=== PATIENT | female | born 1990 | race Caucasian/White ===

== ENCOUNTER → 2017-05-05 | Outpatient (CLI) | payer OTHER | END | disposition home or self-care (01) | LOC: C.PAPS 08:34 | PROVIDERS: ATTEND Physician Assistant | DX: Z01.419 Encounter for gynecological examination (general) (routine) without abnormal findings (principal) ==

== ENCOUNTER → 2017-09-29 | Outpatient (CLI) | payer OTHER ==
--- NOTE | 2017-09-29 09:35 | DIAGNOSTIC IMAGING REPORT ---
LEFT THUMB 3 VIEWS CLINICAL HISTORY: Left thumb injury. FINDINGS: 3 views of the left thumb are obtained. No prior studies are available for comparison at the time of dictation. The skeletal structures are well mineralized. There is a healing nondistracted fracture through the proximal shaft of the first distal phalanx. Overlying soft tissue edema is noted. Fracture does not extend to the articular surface. No additional fracture is seen. The first metacarpophalangeal and interphalangeal joints are well-maintained. IMPRESSION: There is a healing nondistracted fracture through the proximal shaft of the first distal phalanx as above. Electronically signed by: Gamaliel Rodríguez M.D. 09/29/2017 9:33 AM Dictated Date/Time: 09/29/2017 9:32 AM
== END | disposition home or self-care (01) ==
LOC: C.RADBC 09:08
PROVIDERS: ATTEND Family Medicine
DX: S62.525D Nondisplaced fracture of distal phalanx of left thumb, subsequent encounter for fracture with routine healing (principal); X58.XXXD Exposure to other specified factors, subsequent encounter

== ENCOUNTER → 2017-11-29 | Outpatient (CLI) | payer OTHER | END | disposition home or self-care (01) | LOC: C.CPL 09:55 | PROVIDERS: ATTEND Family Medicine | DX: R00.2 Palpitations (principal) ==

== ENCOUNTER 2020-01-19 17:54 | Inpatient (IN) ==
[2020-01-19] MEDS ORDERED: LACTATED RINGER'S 1,000 ML IV SCH ×3 (18:45→22:29)
--- NOTE | 2020-01-19 18:50 | History & Physical Report ---
Date of Service January 19, 2020 Assessment & Plan (1) Breech presentation of fetus: Ruptured, so will move to primary LTCS tonight. Given minimal cervical dilation and no contractions, with very full stomach from recent meal, will defer timing to anesthesia's recommendations unless labor ensues. History of Present Illness Primary Care Provider: Joy Cueva, DO 29yo at 39wk with known breech presentation of fetus, and now SROM occurring at home this evening. She had just eaten a large meal. No contractions. No VB, good FM. Fluid was clear. Allergies Allergy/AdvReac Type Severity Reaction Status Date / Time No Known Allergies Allergy Verified 01/16/20 14:57 Home Medications Home Medications Medication Instructions Recorded Confirmed Type prenat.vits,keeley,zhd-utth-luqtx 1 tab PO QPM 06/10/19 01/19/20 History levothyroxine 88 mcg PO QAM 01/15/20 01/19/20 History Patient History Medical History Acid reflux R/T Anxiety Fluttering sensation of heart workup ordered by PCP negative (EKG, ECHO, Holter monitor study all WNL per pt - [facility]) Hypothyroidism Migraine Seasonal allergies Surgical History History of removal of skin mole S/P wisdom tooth extraction Family History Father Kidney stone Pulmonary embolism Hypertension Sister Thyroid disease Other No family history of adverse response to anesthesia Social History Preferred Language: Icelandic Communication Ability: Effective Carcass Washer Required: No Beliefs That Will Affect Care: None marital status: marital status details: Tru Duong (31) [phone] Current Living Situation: Spouse Current Living Situation Comment: lives with spouse, cats-spouse changing litter current occupational status: employed current occupation: [employer] Other Information That Helps Us Care for You: No Feels Safe at Home: Yes Safety Concerns: Feels Safe At This Time Smoking Status: Never smoker Second Hand Exposure: No ; Tobacco Cessation Education Requested by Patient: No Hx Alcohol Use: No Hx Substance Use: No Physical Exam Constitutional: WD/WN, vitals as above Eyes: PERRL, conjunctivae normal, anicteric sclerae ENMT: external ear and nose normal, oropharynx normal Neck: supple Respiratory: normal respiratory effort and able to speak in complete sentences; no respiratory distress Cardiovascular: Rate/Rhythm: regular rate and regular rhythm Gastrointestinal (Abdomen): Gravid / AGA, nontender Musculoskeletal: no cyanosis or clubbing, extremities motor strength 5/5 Skin: no rashes, warm and dry Neurologic: patellar DTR's 2+ bilat, sensation intact Psychiatric: A+Ox3, euthymic affect Genitourinary: Speculum/Bimanual Exam: no vaginal lesions, no vaginal bleeding and uterus nontender OB Exam Abdomen: + breech (rita breech - anus just above cervix) Manual OB Exam: + cervical dilation 2 cm, + cervical effacement 90%, + station -2 and + amniotic fluid clear OB Exam Monitor Tracing: + external FHT monitor used, + external uterine monitor used and + category I Lymphatic: no cervical or axillary lymphadenopathy Results & Data Vital Signs (Past 12 Hours) Vital Signs Pulse BP 01/19/20 18:05 77 124/66 Code Status & VTE Plan VTE Prophylaxis Plan VTE Prophylaxis will be ordered: Yes Coding Level of Care Code None Diagnoses Breech presentation of fetus O32.1XX0
[2020-01-19 18:58] LABS: Basophils # (auto) 0.01 K/uL (0-0.2); Basophils % (auto) 0.1 %; Eosinophils # (auto) 0.16 K/uL (0-0.5); Eosinophils % (auto) 1.6 %; Hemoglobin 11.9 g/dL (12.0-16.0); Immature Granulocytes # (auto) 0.02 K/uL (0.00-0.02); Immature Granulocytes % (auto) 0.2 %; Lymphocytes # (auto) 1.49 K/uL (1.2-3.4); Mean Corpuscular Hemoglobin 29.9 pg (25-34); Mean Corpuscular Volume 87.9 fL (80-100); Monocytes # (auto) 0.97 K/uL (0.11-0.59); Monocytes % (auto) 9.7 %; Neutrophils # (auto) 7.31 K/uL (1.4-6.5); Neutrophils % (auto) 73.4 %; Platelet Count 183 K/uL (130-400); RDW Coefficient of Variation 12.7 % (11.5-14.5); RDW Standard Deviation 40.9 fL (36.4-46.3); Red Blood Count 3.98 M/uL (4.2-5.4); White Blood Count 9.96 K/uL (4.8-10.8)
--- NOTE | 2020-01-19 19:01 | Anesthesiology Consultation ---
Date of Service January 19, 2020 Assessment & Plan (1) Encounter for pre-operative examination: Chart Review Chart Review: Acceptable Risk for Surgery and Patient NOT seen in Pre Admission Testing Consults Requested none History Surgery Operation Date: 01/19/20 19:20 Proposed Procedures p Section in LD - Jo-Ann Brooks MD Height/Weight Height: 5 ft 8 in Weight: 74.389 kg Allergies Allergy/AdvReac Type Severity Reaction Status Date / Time No Known Allergies Allergy Verified 01/16/20 14:57 Medications Home Medications Medication Instructions Recorded Confirmed Last Taken prenat.vits,keeley,gov-hjjg-bjihb 1 tab PO QPM 06/10/19 01/19/20 01/18/20 21:00 levothyroxine 88 mcg PO QAM 01/15/20 01/19/20 01/19/20 06:00 Past Medical History Medical History Acid reflux R/T Anxiety Fluttering sensation of heart workup ordered by PCP negative (EKG, ECHO, Holter monitor study all WNL per pt - [facility]) Hypothyroidism Migraine Seasonal allergies Exercise / Class Metabolic Activity II 4-5 Yardwork/Stairs/Walk up hill Past Family History Family History Father Kidney stone Pulmonary embolism Hypertension Sister Thyroid disease Other No family history of adverse response to anesthesia Past Surgical History Surgical History History of removal of skin mole S/P wisdom tooth extraction Past Anesthesia History No Hx of Anesthesia Complications and No Family Hx of Anesthesia Complications History of PONV No Hx of PONV and No Hx of Motion Sickness Social History Smoking Status: Never smoker Do You Dip or Chew Tobacco: No Hx Alcohol Use: No Hx Substance Use: No substance use type: does not use Physical Exam Vital Signs Last Vital Signs Temp 36.7 C 01/19/20 18:15 Pulse 77 01/19/20 18:15 Resp 18 01/19/20 18:15 BP 124/66 01/19/20 18:15 Testing Laboratory Results 01/19/20 18:50
[2020-01-19] MEDS ORDERED: PHENYLEPHRINE 100MCG/ML 5ML SYR ONE (19:17)
[2020-01-19] MEDS ORDERED: OXYTOCIN 10 UNITS/ML VIAL ONE (19:17)
[2020-01-19] MEDS ORDERED: ONDANSETRON INJ 2 MG/ML 2 ML VIAL ONE (19:17)
[2020-01-19] MEDS ORDERED: fentaNYL citrate 100 MCG/2 ML VIAL ONE (19:18)
[2020-01-19] MEDS ORDERED: MoRPHine SULFATE PF 1 MG/ML 10 ML AMP/VIAL ONE (19:18)
[2020-01-19] MEDS ORDERED: CEFAZOLIN 2000MG 2,000 MG/15 ML SYR IV STA (19:29)
[2020-01-19] MEDS ORDERED: CITRIC ACID/SODIUM CITRATE 15 ML UDC ONE (19:40)
[2020-01-19] MEDS ORDERED: METOCLOPRAMIDE HCL INJ 5 MG/ML 2 ML VIAL ONE (20:19)
[2020-01-19] MEDS ORDERED: NALOXONE HCL 1 MG in SODIUM CHLORIDE 0.9% 1000ML 1,000 ML IV PRN (20:21)
[2020-01-19] MEDS ORDERED: MoRPHine SULFATE 2 MG/ML CARP IV PRN (20:21)
[2020-01-19] MEDS ORDERED: MoRPHine SULFATE PF 1 MG/ML 10 ML AMP/VIAL INT SPINAL ONE (20:21)
[2020-01-19] MEDS ORDERED: NALOXONE HCL 0.08 MG in SYRINGE 1.8 ML IV PRN (20:21)
[2020-01-19] MEDS ORDERED: PROMETHAZINE HCL 12.5 MG in SODIUM CHLORIDE 0.9% 50 ML IV PRN (20:21)
[2020-01-19] MEDS ORDERED: KETOROLAC 30 MG/ML VIAL IV PRN (20:21)
[2020-01-19] MEDS ORDERED: ONDANSETRON INJ 2 MG/ML 2 ML VIAL IV PRN (20:21)
[2020-01-19] MEDS ORDERED: NALOXONE HCL 0.4 MG/1 ML VIAL/CARP IV PRN (20:21)
[2020-01-19] MEDS ORDERED: ePHEDrine sulfate 50 MG/ML AMP IV PRN (20:21)
[2020-01-19] MEDS ORDERED: LACTATED RINGER'S 500 ML IV PRN (20:21)
[2020-01-19] MEDS ORDERED: MEPERIDINE HCL 25 MG/ML CARP/VIAL IV PRN (20:21)
[2020-01-19] MEDS ORDERED: DiphenhydrAMINE HCL 50 MG/ML VIAL IV PRN (20:21)
[2020-01-19] MEDS ORDERED: DC INTRASPINAL MORPHINE SCH (20:30)
[2020-01-19] MEDS ORDERED: NO NARCOTICS OR SEDATIVES SCH (20:30)
--- NOTE | 2020-01-19 20:48 | Operative Report ---
PG Post Operative Report Pre & Post Diagnosis Operation Date: 01/19/20 19:20 Pre-Op Diagnosis: 1. Breech Presentation 2. Premature Rupture of membranes Post-Op Diagnosis: 1. Breech Presentation 2. Premature Rupture of membranes 3. Bicornuate uterus I identified the patient and participated in the time-out.: Yes Procedure Operation Date: 01/19/20 19:20 Actual Procedures p Primary Low transverse section - Jo-Ann Brooks MD Surgeon Jo-Ann Brooks MD Dispensing And Measuring Optician Helen Montez RN Estimated Blood Loss 500 Findings Consistent with Post-Op Diagnosis (Bicornuate uterus with in RIGHT horn) Specimens cord blood, placenta Anesthesia Type Spinal Complications none Disposition Accompanied Patient To Recovery: Yes Disposition: L&D Description of Procedure The patient was brought to the operating room and placed on the table in the supine position with a leftward tilt, then prepped and draped in standard sterile fashion. A hard time out was taken prior to proceeding. A pfannensteil incision was created sharply and carried down to the fascia using bovie electrocautery. The fascia was nicked and then extended using silva scissors. The edges of the fascia were grasped with Irasema clamps and elevated, then sharply and bluntly dissected off the underlying rectus. The midline of the rectus was identified and bluntly . The peritoneum was bluntly entered, and this entry was extended using pressure from the surgeon's hands. The bladder retractor was placed and the lower uterine segment was examined and found to be well developed. A bladder flap was created and the retractor was replaced behind this flap to protect the bladder. A transverse lower uterine incision was then created, with final entry to the uterine cavity made in a blunt manner with the surgeon's finger. Clear amniotic fluid was encountered. The sacrum was elevated to the incision and delivered using mild fundal pressure. The legs were delivered in physiologic fashion, then the torso was wrapped in a damp towel and elevated to allow sweeping of the arms, then delivery of the head maintaining flexion at all times. The cord was doubly clamped and cut, then the vigorous was taken to the warmer for siene maker care. The placenta was manually extracted, then the uterus was gently exteriorized from the maternal abdomen. It was noted to be distinctly bicornuate with an enlarged R horn where the had grown, and a smaller L horn, with bilateral tubes and ovaries appearing normal. The cavity was cleared of clot and debris using a dry lap sponge. The angles of the incision were identified with allis clamps, and the hysterotomy was then repaired in running locked fashion using 0-vicryl suture, followed by a second imbricating layer. The tubes and ovaries were examined and found to be normal bilaterally. The posterior gutter was irrigated and cleared of clot and debris. The uterus was then gently re-internalized to the abdomen. Lateral gutters were cleared of clot and debris using a damp lap sponge, and a final exam of the hysterotomy revealed good hemostasis. The rectus muscles were allowed to reapproximate naturally. The angle of the fascia was grasped with a Irasema clamp and the fascia was then repaired in running non-locked fashion with 1-vicryl suture. At the completion of repair, the fascia was examined and found to be free of any defect. The subcutaneous tissue was copiously irrigated and then reapproximated using 3-0 chromic. The skin was then closed using 4-0 monocryl in a running subcuticular fashion and a dermabond dressing was applied. The tate was noted to be draining clear yellow urine as the patient was transferred back to her recovery room. I attest to the content of the Intraoperative Record and any orders documented therein. Any exceptions are noted below.
--- NOTE | 2020-01-19 20:52 | Anesthesiology Progress Note ---
Date of Service January 19, 2020 Anesthesia Post Procedure Vital Signs Vital Signs: Temp Pulse Resp BP Pulse Ox 01/19/20 20:50 69 112/55 L 01/19/20 20:48 68 105/55 L 01/19/20 20:46 69 100 01/19/20 19:35 36.7 C 74 18 123/79 01/19/20 18:15 36.7 C 77 18 124/66 01/19/20 18:05 77 124/66 Transfer of Care Handoff Completed per policy Notes Mental Status: alert / awake / arousable and participated in evaluation Patient Amnestic to Procedure: No Nausea / Vomiting: adequately controlled Pain: adequately controlled Airway Patency, RR, SpO2: stable & adequate BP & HR: stable & adequate Hydration State: stable & adequate Neuraxial Anesthesia: was administered and sensory block is resolving Anesthetic Complications: no major complications apparent and Pt Satisfied with anesthetic care
[2020-01-19] MEDS ORDERED: SODIUM CHLORIDE 0.9% 1000ML 1,000 ML IV SCH (21:00)
[2020-01-19] MEDS ORDERED: SUPERCREAM 0.870% 15 GM JAR EXT PRN (22:29)
[2020-01-19] MEDS ORDERED: DIPHTHERIA/TETANUS/PERTUSSIS 0.5 ML SYR/VIAL IM ONE (22:29)
[2020-01-19] MEDS ORDERED: MAGNESIUM HYDROXIDE SUSP 30 ML UDC PO PRN (22:29)
[2020-01-19] MEDS ORDERED: HYDROCORTISONE ACETATE 25 MG SUPP PR PRN (22:29)
[2020-01-19] MEDS ORDERED: SENNA 8.6 MG TAB PO PRN (22:29)
[2020-01-19] MEDS ORDERED: BENZOCAINE 20% AER SPR 82.5 GM CAN EXT PRN (22:29)
[2020-01-19] MEDS ORDERED: OXYTOCIN 30 UNITS in LACTATED RINGER'S 1,000 ML IV SCH (22:29)
[2020-01-20] MEDS: NALBUPHINE HCL INJ 10 MG/ML AMP IV PRN ×2 (04:29→09:46)
[2020-01-20] MEDS ORDERED: CITRIC ACID/SODIUM CITRATE 15 ML UDC PO SCH (06:00)
[2020-01-20] MEDS ORDERED: CEFAZOLIN 2000MG 2,000 MG/15 ML SYR IV SCH (06:00)
[2020-01-20] MEDS: LEVOTHYROXINE SODIUM 88 MCG TABLET PO SCH (06:05)
[2020-01-20 06:28] LABS: Basophils # (auto) 0.01 K/uL (0-0.2); Basophils % (auto) 0.1 %; Eosinophils # (auto) 0.12 K/uL (0-0.5); Eosinophils % (auto) 0.9 %; Hematocrit (blood only) 31.1 % (37-47); Hemoglobin 10.6 g/dL (12.0-16.0); Immature Granulocytes # (auto) 0.03 K/uL (0.00-0.02); Immature Granulocytes % (auto) 0.2 %; Lymphocytes # (auto) 1.35 K/uL (1.2-3.4); Lymphocytes % (auto) 9.9 %; Mean Corpuscular Hemoglobin 29.8 pg (25-34); Mean Corpuscular Hgb Conc 34.1 g/dL (32-36); Mean Corpuscular Volume 87.4 fL (80-100); Monocytes # (auto) 1.17 K/uL (0.11-0.59); Monocytes % (auto) 8.6 %; Neutrophils # (auto) 10.95 K/uL (1.4-6.5); Neutrophils % (auto) 80.3 %; Platelet Count 142 K/uL (130-400); RDW Coefficient of Variation 12.5 % (11.5-14.5); RDW Standard Deviation 40.3 fL (36.4-46.3); Red Blood Count 3.56 M/uL (4.2-5.4); White Blood Count 13.63 K/uL (4.8-10.8)
--- NOTE | 2020-01-20 06:34 | Obstetrical Progress Note ---
Date of Service <Anna Hilliard DO - Last Filed: 01/20/20 06:54> January 20, 2020 Assessment & Plan <Anna Hilliard DO - Last Filed: 01/20/20 06:54> (1) Encounter for care and examination after delivery: - POD #1. - doing well. - for removal of catheter this AM, then encourage ambulation as able. - pain meds as needed for pain control. - SCDs when in bed. Subjective <Anna Hilliard DO - Last Filed: 01/20/20 06:54> 29 yo female ; POD # 1 following section delivery at 39weeks; doing well this AM; minimal abdominal cramping/pain at incision site; still has catheter this AM and has not been out of bed. No passing gas yet. Pain well controlled with sitting still however has not moved much yet. 24 Hour I/Os: Intake: 854 Output: 600 Review of Systems Constitutional: denies fever, chills, sweats, headache Respiratory: denies SOB, difficulty breathing Cardiac: denies CP, chest palpitations, chest pressure Breast: denies breast pain : denies dysuria Physical Exam <DO Lindsay Jacobsen Last Filed: 01/20/20 06:54> General: patient is alert and oriented, in NAD Cardiac: +S1/S2, no murmurs rubs or gallops Respiratory: lungs CTA b/l, anteriorly and posteriorly, no wheezes rales or rhonchi, no increased work of breathing, symmetric chest rise, no respiratory distress Abdomen: soft, NT, +bowel sounds Uterus: uterine fundus firm, palpable below the level of the umbilicus. Incision intact, non-tender, non-erythematous, no weeping from incision site Lower Extremities: no LE edema or swelling, no deep calf pain, Jeanette's sign negative b/l Results & Data <Anna Hilliard DO - Last Filed: 01/20/20 06:54> Vital Signs (Past 12 Hours) Vital Signs Temp Pulse Pulse Resp BP BP Pulse Ox 01/20/20 06:05 20 97 01/20/20 05:20 18 97 01/20/20 04:00 18 96 01/20/20 03:55 36.9 C 88 18 108/65 96 06/01/20 03:15 16 96 01/20/20 02:40 19 96 01/20/20 01:45 18 97 01/20/20 00:30 36.6 C 64 18 106/65 97 01/19/20 23:30 36.9 C 62 20 115/70 98 01/19/20 23:00 36.5 C 18 01/19/20 22:58 67 108/56 L 98 01/19/20 22:53 74 98 01/19/20 22:49 77 121/61 01/19/20 22:48 76 98 01/19/20 22:43 69 98 01/19/20 22:38 69 104/59 L 98 01/19/20 22:33 75 98 01/19/20 22:30 18 01/19/20 22:28 69 118/54 L 99 01/19/20 22:23 68 98 01/19/20 22:19 76 122/59 L 01/19/20 22:18 76 98 01/19/20 22:13 80 98 01/19/20 22:09 78 125/62 01/19/20 22:08 77 98 01/19/20 22:03 83 98 01/19/20 22:00 18 01/19/20 21:58 81 128/63 98 01/19/20 21:54 77 121/58 L 01/19/20 21:53 77 98 01/19/20 21:50 18 01/19/20 21:48 80 97 01/19/20 21:43 76 97 01/19/20 21:40 18 01/19/20 21:38 81 124/60 97 01/19/20 21:33 72 97 01/19/20 21:30 18 01/19/20 21:28 73 118/59 L 97 01/19/20 21:23 77 97 01/19/20 21:20 16 01/19/20 21:19 77 125/64 01/19/20 21:18 79 97 01/19/20 21:13 81 97 01/19/20 21:10 18 01/19/20 21:09 84 123/66 01/19/20 21:08 85 97 01/19/20 21:03 88 95 01/19/20 21:00 16 01/19/20 20:59 80 142/49 H 05/31/20 20:56 73 100 01/19/20 20:51 79 100 01/19/20 20:50 36.4 C L 69 18 112/55 L 01/19/20 20:48 68 105/55 L 01/19/20 20:46 69 100 01/19/20 19:35 36.7 C 74 18 123/79 <Jo-Ann Brooks MD - Last Filed: 01/21/20 08:26> Co-Signing Physician Notes I have reviewed the resident's note and examined the patient myself, and agree with the note above. Resident Activity Tracking <Anna Hilliard DO - Last Filed: 01/20/20 06:54> Resident Involvement: Resident Care Provided Care Provided: OB Delivery
[2020-01-20] MEDS: PRENATAL VITAMIN 1 TAB PO SCH (08:14)
[2020-01-20] MEDS: FERROUS SULFATE 325 MG TAB PO SCH (08:14)
[2020-01-20] MEDS: DOCUSATE SODIUM 100 MG CAP PO SCH ×3 (08:14→21:36)
[2020-01-20] MEDS: SIMETHICONE 80 MG CHEW PO SCH ×5 (08:14→21:36)
[2020-01-20] MEDS: IBUPROFEN 600 MG TAB PO PRN ×3 (13:01→21:20)
[2020-01-20] MEDS ORDERED: ONDANSETRON INJ 2 MG/ML 2 ML VIAL IV PRN (14:21)
[2020-01-20] MEDS ORDERED: PROMETHAZINE HCL 25 MG in SODIUM CHLORIDE 0.9% 50 ML IV PRN (14:21)
[2020-01-20] MEDS ORDERED: DiphenhydrAMINE HCL 50 MG/ML VIAL IV PRN (14:21)
[2020-01-20] MEDS ORDERED: OXYCODONE/ACETAMINOPHEN 5mg/325mg TAB PO PRN (14:21)
[2020-01-20] MEDS ORDERED: KETOROLAC 30 MG/ML VIAL IV PRN (14:21)
[2020-01-20] MEDS ORDERED: MEPERIDINE HCL 50 MG/ML CARP IV PRN (14:21)
[2020-01-21] MEDS: IBUPROFEN 600 MG TAB PO PRN ×6 (01:09→21:32)
--- NOTE | 2020-01-21 05:49 | Obstetrical Progress Note ---
Date of Service January 21, 2020 Assessment & Plan (1) Encounter for care and examination after delivery: Postoperative from section patient meets discharge criteria as she is ambulating well tolerating an oral diet has minimal bleeding and no extremity pain. Subjective Ambulation: ambulating normally Voiding: no voiding problems Diet Tolerance:: regular diet Lochia:: Small Feeding Type:: breast feeding Current Pain Level(1-10): 1 Physical Exam Constitutional WD/WN, vitals as above Gastrointestinal (Abdomen) normal bowel sounds, soft, nontender, no hepatosplenomegaly (incision CDI) Results & Data Vital Signs (Past 12 Hours) Vital Signs Temp Pulse Resp BP Pulse Ox 01/20/20 23:15 98.1 F 87 18 104/65 97 01/20/20 20:00 98.6 F 93 H 18 109/71 97
[2020-01-21 07:03] LABS: Hematocrit (blood only) 33.3 % (37-47); Hemoglobin 10.7 g/dL (12.0-16.0)
[2020-01-21] MEDS: LEVOTHYROXINE SODIUM 88 MCG TABLET PO SCH (07:09)
[2020-01-21] MEDS: PRENATAL VITAMIN 1 TAB PO SCH (08:39)
[2020-01-21] MEDS: DOCUSATE SODIUM 100 MG CAP PO SCH ×2 (08:39→21:15)
[2020-01-21] MEDS: FERROUS SULFATE 325 MG TAB PO SCH (08:39)
[2020-01-21] MEDS: SIMETHICONE 80 MG CHEW PO SCH ×4 (08:39→21:15)
[2020-01-22] MEDS: IBUPROFEN 600 MG TAB PO PRN ×4 (01:36→14:10)
[2020-01-22] MEDS: LEVOTHYROXINE SODIUM 88 MCG TABLET PO SCH (06:32)
--- NOTE | 2020-01-22 06:52 | Obstetrical Progress Note ---
Date of Service <Anna Hilliard DO - Last Filed: 01/22/20 07:51> January 22, 2020 Assessment & Plan <Anna Hilliard DO - Last Filed: 01/22/20 07:51> (1) Encounter for care and examination after delivery: - doing well and without complaints today. Vitals stable and H/H stable. - for discharge today. - went over d/c instructions and answered all patient questions. Subjective <Anna Hilliard DO - Last Filed: 01/22/20 07:51> 29 yo F POD #2 following c/s on 01/20; doing well this AM; minimal abdominal cramping/pain at incision site and with ; voiding well, passing gas but no BM; tolerating meals overnight, able to ambulate some within the room. Review of Systems Constitutional: denies fever, chills, sweats, headache Respiratory: denies SOB, difficulty breathing Cardiac: denies CP, chest palpitations, chest pressure Breast: denies breast pain : denies dysuria Physical Exam <Anna Hilliard DO - Last Filed: 01/22/20 07:51> General: patient is alert and oriented, in NAD Cardiac: +S1/S2, no murmurs rubs or gallops Respiratory: lungs CTA b/l, anteriorly and posteriorly, no wheezes rales or rhonchi, no increased work of breathing, symmetric chest rise, no respiratory distress Abdomen: soft, NT, +bowel sounds Uterus: uterine fundus firm, palpable below the level of the umbilicus. Incision intact, non-tender, non-erythematous, no weeping from incision site Lower Extremities: no LE edema or swelling, no deep calf pain, Jeanette's sign negative b/l Results & Data <Anna Hilliard DO - Last Filed: 01/22/20 07:51> Vital Signs (Past 12 Hours) Vital Signs Temp Pulse Resp BP 01/21/20 23:20 36.6 C 62 18 104/68 <Rohit Zimmerman MD - Last Filed: 01/22/20 08:25> Co-Signing Physician Notes Patient seen and evaluated and agree with the above findings and plan. Stable for discharge Resident Activity Tracking <DO Lindsay Jacobsen Last Filed: 06/03/20 07:51> Resident Involvement: Resident Care Provided Care Provided: OB Delivery
[2020-01-22] MEDS: SIMETHICONE 80 MG CHEW PO SCH ×2 (09:06→14:10)
[2020-01-22] MEDS: DOCUSATE SODIUM 100 MG CAP PO SCH (09:07)
[2020-01-22] MEDS: FERROUS SULFATE 325 MG TAB PO SCH (09:07)
[2020-01-22] MEDS: PRENATAL VITAMIN 1 TAB PO SCH (09:07)
== END 2020-01-22 14:25 | disposition home or self-care (01) | DRG 788 ==
LOC: OPB 17:54 → 4S1 17:57 → 4S2 23:15

== ENCOUNTER 2022-12-10 01:42 | Inpatient (IN) ==
[2022-12-10] MEDS ORDERED: OXYTOCIN 30 UNITS/500 ML BAG IV PRN ×2 (02:33→07:59)
[2022-12-10] MEDS ORDERED: LIDOCAINE 1% LOCAL 20 ML VIAL INFIL PRN (02:33)
--- NOTE | 2022-12-10 02:37 | History & Physical Report ---
Date of Service December 10, 2022 Assessment & Plan (1) Previous delivery affecting , antepartum: (2) Insulin controlled gestational diabetes mellitus (GDM) during : (3) Bicornuate uterus: (4) with 39 completed weeks gestation: Plan admit for srom, favorable cervix, prior to her due date. Patient desires lamonte/. Our consent form was reviewed in detail. Discussed the 1% risk of uterine rupture with the potential for poor outcome for baby and/or mother. Discussed that even in the best circumstances in the setting of rutpure, may not be able to get the baby out quickly enough to prevent poor outcome. Discussed that she would need to be cont monitored and that her need for internal monitors is higher than a normal laboring patient. Discussed the potential for the need for pitocin for augmentation. Discussed this is not contraindicated in . Discussed that c/s after a failed LAMONTE carriers higher risk for complications/issues for her. Disucssed could proceed with c/s right now. Discussed her indication for her first c/s was breech and obviously not that now so chance of success may be as high as 70%. She reviewed and signed the /lamonte consent form. Fetus category one. Not having alot of contractions currently so plan expectant management at this time. GDM--plan hourly blood sugars for a goal of 70-120. Questions asked and aswered. History of Present Illness Chief Complaint: srom and contractions Primary Care Provider: Scott Lopez Patient is a 32yowf with iup at 39 6/7 weeks who presents with large gush of fluid at 1am. Notes clear with mucous and blood tinge. Notes also having contractions. Notes she is having a hard time feeling FM. Last was a c/s for breech, has bicornuate uterus. She has been cephalic this and desires /LAMONTE. Was scheduled for default c/s on Monday because of need for delivery for insulin requiring GDM. Notes her sugars have been well controlled. Her last us was 11/16 with AC 24% and efw 24%. She started insulin because her FBS were >95-100. and Delivery Plans Bicornuate uterus - in right horn *Growth US Q 4 wks starting at 28wks. Hypothyroid - following w/ pcp *Check TFTs Q4wks Previous *OK to C/S SCHEDULED FOR 12/12/[address] ALBERTS AND DR. HERNANDEZ ASSIST (WEEKEND POSTCALL) Flu vaccine given 06/30/22- MK GDM on insulin *Wkly NSTs @32wks and Twice wkly @36wks *Serial growth US @28wks *Deliver by [facility] OB Labs: Blood Type A Positive 05/05/22 Antibody Screen NEGATIVE 05/05/22 Hemoglobin 12.0 g/dl (12.0-16.0) 09/21/22 Hematocrit 35.2 % (37.0-47.0) L 09/21/22 Mean Corpuscular Volume 87.5 fL (80.0-100.0) 05/05/22 Platelet Count 217 K/uL (130-400) 05/05/22 Rubella IgG Antibody Immune (Immune) 05/05/22 Rapid Plasma Reagin Nonreactive (Nonreactive) 05/05/22 Hepatitis B Surface Antigen Neg (Neg) 06/20/19 Hepatitis B Surface Antigen. NON-REACTIVE (NON-REACTIVE) 05/05/22 Hepatitis C Antibody (EIA) NON-REACTIVE (NON-REACTIVE) 05/05/22 HIV (1&2) Ab and P24 Ag, 4th Gener Neg (Neg) 06/20/19 HIV (1&2) Ag and Ab Confirmation NON-REACTIVE (NON-REACTIVE) 05/05/22 Glucose 1 Hour 50 gm Load 134 mg/dl (70-130) H 09/21/22 Maternal Serum Alpha Fetoprotein 68.1 ng/mL 06/30/22 OB Optional Labs: Chlamydia trachomatis RNA Not Detected (NotDetected) 05/05/22 Neisseria gonorrhoeae RNA Not Detected (NotDetected) 05/05/22 Thyroid Stimulating Hormone (TSH) 1.551 uIu/ml (0.300-4.500) 12/01/22 Alpha Fetoprotein Triple Screen SEE NOTE 06/30/22 Labs Reviewed: (-) CF/SMA in prior - sln cfdna-low risk--mln afp neg gbs neg Allergies Allergy/AdvReac Type Severity Reaction Status Date / Time No Known Allergies Allergy Verified 12/09/22 10:08 Home Medications Medication Instructions Recorded Confirmed Type prenat.vits,keeely,zte-lrtd-ksopy 1 tab PO QPM 06/10/19 12/09/22 History acetone (urine) test (Ketone Urine #50 ea 10/03/22 12/09/22 Rx Test strips) blood sugar diagnostic (OneTouch #150 ea 10/03/22 12/09/22 Rx Verio test strips) blood-glucose meter (OneTouch #1 ea 10/03/22 12/09/22 Rx Verio Reflect Meter) lancets 33 gauge (OneTouch Delica #150 ea 10/03/22 12/09/22 Rx Lancets) pen needle, diabetic 32 gauge x #50 ea 11/04/22 12/09/22 Rx 5/32" (BD Ultra-Fine America Pen Needle) insulin NPH isoph U-100 human 100 16 unit subcut QPM 12/01/22 12/09/22 History unit/mL (3 mL) subcutaneous pen (Novolin N FlexPen) levothyroxine 100 mcg tablet 100 mcg PO QAM 12/01/22 12/09/22 History Patient History Medical History (Updated 12/10/22 @ 02:50 by Jennifer Saenz MD, FACOG) Acid reflux r/t Anxiety no meds Bicornuate uterus Gestational diabetes History of COVID-08 Apr 2022 > not hospitalized History of multiple miscarriages x2 > had lots of clotting with second, had to take cytotec History of palpitations s/p unremarkable cardiac workup per patient Hypothyroidism Migraine none at present Seasonal allergies Spontaneous Surgical History H/O: section breech, prom Primary (01/19/20): SAB at [facility] History of removal of skin mole S/P wisdom tooth extraction Family History Father Kidney stone Pulmonary embolism Hypertension Sister Thyroid disease Other No family history of adverse response to anesthesia Denies family history of Ovarian cancer Breast cancer Colorectal cancer Social History Smoking Status: Never smoker Second Hand Exposure: No; Hx Alcohol Use: No Hx Substance Use: No Preferred Language: German Communication Ability: Effective Rate Inserter Required: No Beliefs That Will Affect Care: None marital status: marital status details: Tru Duong (33) [phone] Current Living Situation: Spouse Current Living Situation Comment: lives with spouse, daughter, cats-spouse changing litter current occupational status: employed current occupation: [employer] Feels Safe at Home: Yes Safety Concerns: Feels Safe At This Time Assistive Devices: Glasses OB History Past Pregnancies Del. Date GA wks Lbr Lgth wt Sex Type del Anes Place Del Prov ? Comment 01/19/20 39 A 7lb 0.5oz F C-Sectio n Spinal [facility] Cecilia No dx w/ bicornuate uterus, in R horn 04/02/21 Aborted-Spontaneous 11/16/21 Aborted-Spontaneous Physical Exam Constitutional: WD/WN, vitals as above Gastrointestinal (Abdomen): soft, gravid, nt Psychiatric: A+Ox3, euthymic affect Genitourinary: sse--gross rupture, +f/n/p sve--4+/90/-2 toco--irregular contractions efm--130s with mod variability, accels to 150s, no decels Results & Data Vital Signs (Past 12 Hours) Vital Signs Temp Pulse Resp BP 12/10/22 01:59 36.7 C 18 12/10/22 01:56 67 129/86 Coding Level of Care Code None Diagnoses Previous delivery affecting , antepartum O34.219 Insulin controlled gestational diabetes mellitus (GDM) during O24.414 Bicornuate uterus Q51.3 with 39 completed weeks gestation Z3A.39
[2022-12-10 03:29] LABS: Hemoglobin 12.1 g/dl (12.0-16.0); Mean Corpuscular Hemoglobin 29.7 pg (25.0-34.0); Mean Corpuscular Hgb Conc 33.6 g/dL (32.0-36.0); Mean Corpuscular Volume 88.5 fL (80.0-100.0); Mean Platelet Volume 11.4 fL (9.4-12.4); Platelet Count 170 K/uL (130-400); RDW Coefficient of Variation 12.4 % (11.5-14.5); RDW Standard Deviation 40.3 fL (36.4-46.3); Red Blood Count 4.07 M/uL (4.20-5.40); White Blood Count 10.01 K/ul (4.8-10.8)
[2022-12-10] MEDS: LACTATED RINGER'S 1,000 ML IV PRN ×2 (03:42→04:39)
[2022-12-10] MEDS ORDERED: ePHEDrine sulfate 50 MG/ML AMP ONE (03:56)
[2022-12-10] MEDS ORDERED: fentaNYL citrate PF 100 MCG/2 ML VIAL ONE (03:56)
[2022-12-10] MEDS ORDERED: SODIUM CHLORIDE 0.9% PF INJ 10 ML VIAL ONE (03:56)
[2022-12-10] MEDS ORDERED: fentaNYL 2MCG/ML ROPIVACAINE 1.25MG/ML 100 ML BAG EPI ONE (03:57)
[2022-12-10] MEDS ORDERED: LIDOCAINE 2%/EPINEPHRINE 1:200,000 20 ML PF ONE (03:57)
[2022-12-10] MEDS ORDERED: BUPIVACAINE 0.25% PF 30 ML VIAL ONE (03:57)
[2022-12-10] MEDS ORDERED: NALOXONE HCL 1 MG in SODIUM CHLORIDE 0.9% 1000ML 1,000 ML IV PRN (04:03)
[2022-12-10] MEDS ORDERED: ePHEDrine sulfate 50 MG/ML AMP IV PRN (04:03)
[2022-12-10] MEDS ORDERED: NALBUPHINE HCL INJ 10 MG/ML AMP IV PRN (04:03)
[2022-12-10] MEDS ORDERED: ONDANSETRON INJ 2 MG/ML 2 ML VIAL IV PRN (04:03)
[2022-12-10] MEDS ORDERED: fentaNYL 2MCG/ML ROPIVACAINE 1.25MG/ML 100 ML BAG EPI PRN (04:03)
[2022-12-10] MEDS ORDERED: diphenhydrAMINE 50 MG/ML VIAL IV PRN (04:03)
[2022-12-10] MEDS ORDERED: NALOXONE HCL 0.4 MG/1 ML VIAL/CARP IV PRN (04:03)
--- NOTE | 2022-12-10 04:06 | Anesthesiology Consultation ---
Date of Service December 10, 2022 Assessment & Plan (1) Encounter for pre-operative examination: Chart Review Chart Review: Patient NOT seen in Pre Admission Testing and Acceptable Risk for Labor Epidural Consults Requested none History Height/Weight Height: 5 ft 8 in Weight: 77.564 kg Allergies Allergy/AdvReac Type Severity Reaction Status Date / Time No Known Allergies Allergy Verified 12/09/22 10:08 Medications Home Medications Medication Instructions Recorded Confirmed Last Taken prenat.vits,keeley,tad-vcwi-yitlj 1 tab PO QPM 06/10/19 12/10/22 12/09/22 09:00 acetone (urine) test (Ketone Urine #50 ea 10/03/22 12/09/22 Unknown Test strips) blood sugar diagnostic (OneTouch #150 ea 10/03/22 12/09/22 Unknown Verio test strips) blood-glucose meter (OneTouch #1 ea 10/03/22 12/09/22 Unknown Verio Reflect Meter) lancets 33 gauge (OneTouch Delica #150 ea 10/03/22 12/09/22 Unknown Lancets) pen needle, diabetic 32 gauge x #50 ea 11/04/22 12/09/22 Unknown 5/32" (BD Ultra-Fine America Pen Needle) insulin NPH isoph U-100 human 100 16 unit subcut QPM 12/01/22 12/10/22 12/09/22 22:00 unit/mL (3 mL) subcutaneous pen (Novolin N FlexPen) levothyroxine 100 mcg tablet 100 mcg PO QAM 12/01/22 12/10/22 12/09/22 06:00 Active Medications Generic Name Dose Route Start Last Admin Trade Name Freq PRN Reason Stop Dose Admin Lactated Ringer's 1,000 mls @ 125 mls/hr 12/10/22 02:33 12/10/22 03:42 Lr IV 12/12/22 02:32 999 mls/hr .Q8H PRN Administration L&D Protocol Protocol Past Medical History Medical History Acid reflux r/t Anxiety no meds Bicornuate uterus Gestational diabetes History of COVID-08 Apr 2022 > not hospitalized History of multiple miscarriages x2 > had lots of clotting with second, had to take cytotec History of palpitations s/p unremarkable cardiac workup per patient Hypothyroidism Migraine none at present Seasonal allergies Spontaneous Exercise / Class Metabolic Activity II 4-5 Yardwork/Stairs/Walk up hill Past Family History Family History Father Kidney stone Pulmonary embolism Hypertension Sister Thyroid disease Other No family history of adverse response to anesthesia Denies family history of Ovarian cancer Breast cancer Colorectal cancer Past Surgical History Surgical History H/O: section breech, prom Primary (01/19/20): SAB at [facility] History of removal of skin mole S/P wisdom tooth extraction Social History Smoking Status: Never smoker Hx Alcohol Use: No Hx Substance Use: No substance use type: does not use Physical Exam Vital Signs Last Vital Signs Temp 36.7 C 12/10/22 01:59 Pulse 67 12/10/22 01:56 Resp 18 12/10/22 01:59 BP 129/86 12/10/22 01:56 Testing Laboratory Results 12/10/22 03:10 12/10/22 12/10/22 03:39 02:34 POC Glucose 89 91
--- NOTE | 2022-12-10 05:02 | Labor Progress Brief Note ---
Date of Service December 10, 2022 Subjective Just received epidural Assessment & Plan (1) with 39 completed weeks gestation: (2) Gestational diabetes: (3) Previous delivery affecting , antepartum: Plan continue current management. Fetus overall reassuring. Admission and Anticipated Discharge Date Admission Date: December 10, 2022 Physical Exam Physical Exam: cx--5/100/-2 to -1 toco--q2-4min efm--130s wtih mod variabiltiy, accels present, +scalp stim, early decels with some contractions. iupc pplaced Results & Data Vital Signs (Past 12 Hours) Vital Signs Temp Pulse Resp BP Pulse Ox 12/10/22 01:59 36.7 C 18 12/10/22 04:57 97 12/10/22 04:57 69 12/10/22 04:57 78 12/10/22 04:57 112/67 12/10/22 04:56 93 12/10/22 04:56 88 12/10/22 04:54 85 12/10/22 04:54 110/64 12/10/22 04:52 98 12/10/22 04:52 90 12/10/22 04:51 74 12/10/22 04:51 114/66 12/10/22 04:47 99 12/10/22 04:47 75 12/10/22 04:48 74 12/10/22 04:48 115/68 12/10/22 04:44 94 12/10/22 04:44 89 12/10/22 04:45 77 12/10/22 04:45 110/61 12/10/22 04:42 99 12/10/22 04:42 77 12/10/22 04:42 76 12/10/22 04:42 114/61 12/10/22 04:39 76 12/10/22 04:39 110/69 12/10/22 04:37 100 12/10/22 04:37 79 12/10/22 04:36 79 12/10/22 04:36 106/64 12/10/22 04:32 100 12/10/22 04:33 92 12/10/22 04:32 81 12/10/22 04:33 80 12/10/22 04:33 121/60 12/10/22 04:30 85 12/10/22 04:30 123/52 L 12/10/22 04:27 93 12/10/22 04:27 92 H 12/10/22 04:27 90 12/10/22 04:27 93 H 12/10/22 04:27 128/59 L 12/10/22 04:24 82 12/10/22 04:24 124/70 12/10/22 04:22 100 12/10/22 04:22 84 12/10/22 04:21 74 12/10/22 04:21 122/65 12/10/22 04:17 100 12/10/22 04:17 75 12/10/22 04:18 77 12/10/22 04:18 124/66 12/10/22 04:12 100 12/10/22 04:12 93 H 12/10/22 01:56 67 129/86 Coding Level of Care Code None Diagnoses with 39 completed weeks gestation Z3A.39 Gestational diabetes O24.419 Previous delivery affecting , antepartum O34.219
[2022-12-10] MEDS ORDERED: ACETAMINOPHEN 325 MG TAB PO PRN (07:59)
[2022-12-10] MEDS ORDERED: DIPHTHERIA/TETANUS/PERTUSSIS 0.5mL SYR/VIAL (Age 7+yrs) IM ONE (07:59)
[2022-12-10] MEDS ORDERED: HYDROCORTISONE ACETATE 25 MG SUPP PR PRN (07:59)
[2022-12-10] MEDS ORDERED: bisacodyL 10 MG SUPP PR PRN (07:59)
[2022-12-10] MEDS ORDERED: oxyCODONE/ACETAMINOPHEN 5mg/325mg TAB PO PRN (07:59)
[2022-12-10] MEDS ORDERED: BENZOCAINE 20% AER SPR 82.5 GM CAN EXT PRN (07:59)
--- NOTE | 2022-12-10 08:03 | Delivery Summary ---
Vaginal Delivery Summary Date of Service December 10, 2022 Vaginal Delivery Summary and 2nd Degree LAC (bilateral labial) Pre-operative Diagnosis: at 39 weeks srom labor previous c/s Post-operative Diagnosis: same Procedure: epidural second degree and bilateral labial lacs and reapir EBL: 350 Anesthesia: epidural Procedure: Patient presented to labor and delivery with srom and early labor. Consented for . Progressed spontaneously to c/c/+3-4. The patient pushed for 15 minutes to deliver a viable female in ben position. The nose and mouth were bulb suctioned on the perineum and the rest of the infant was then delivered without difficulty. The baby was vigorous. The nose and mouth were again bulb suctioned and the was placed in the maternal abdomen for drying and attention. Cord was clamped and cut at one minute of life. Cord blood and segment obtained. Placenta delivered spontaneous, intact with a three vessel cord. Cervix/sulci/rectum were intact. A second degree perineal laceration and bilateral labial lacs were repaired in the normal standard fashion. Hemostasis obtained with dilute pitocin and fundal massage. Apgars were 8/9. Mother and baby doing well at the end of the delivery. [facility] Vaginal Delivery Charge Delivery Type Details: and 2nd Degree LAC (bilateral labial)
--- NOTE | 2022-12-10 08:50 | Anesthesia Procedure Note ---
Date of Service December 10, 2022 Anesthesia Post Epidural Note Vital Signs Vital Signs: Temp Pulse Resp BP Pulse Ox 36.9 C 82 18 115/72 95 12/10/22 08:00 12/10/22 08:45 12/10/22 08:00 12/10/22 08:45 12/10/22 07:42 Pain Intensity Abdomen: Pain Intensity: 4 Notes Mental Status: alert / awake / arousable and participated in evaluation Nausea / Vomiting: adequately controlled Pain: adequately controlled Airway Patency, RR, SpO2: stable & adequate BP & HR: stable & adequate Hydration State: stable & adequate Neuraxial Anesthesia: was administered and sensory block is resolving Anesthetic Complications: no major complications apparent Epidural: Removed without complications and With tip intact
[2022-12-10] MEDS: DOCUSATE SODIUM 100 MG CAP PO SCH ×2 (18:20→20:46)
[2022-12-10] MEDS: PRENATAL VITAMIN 1 TAB PO SCH (18:20)
[2022-12-10] MEDS: IBUPROFEN 600 MG TAB PO PRN (21:22)
[2022-12-11 06:16] LABS: Hematocrit (blood only) 33.5 % (37.0-47.0); Hemoglobin 11.5 g/dl (12.0-16.0)
[2022-12-11] MEDS ORDERED: LEVOTHYROXINE SODIUM 100 MCG TABLET PO SCH (06:30)
--- NOTE | 2022-12-11 07:36 | Obstetrical Progress Note ---
Date of Service December 11, 2022 Assessment & Plan (1) with 39 completed weeks gestation: day #2 from successful vaginal after she is doing well no extremity pain minimal bleeding breast-feeding well she wishes to go home today Subjective Ambulation: ambulating normally Voiding: no voiding problems Passing Gas:: Yes Diet Tolerance:: regular diet Lochia:: Small Feeding Type:: breast feeding Constitutional: + as per Subjective / HPI Physical Exam Constitutional WD/WN, vitals as above well developed and well nourished Respiratory normal respiratory effort, lungs clear to auscultation normal respiratory effort Cardiovascular RRR, no murmur, no edema Gastrointestinal (Abdomen) normal bowel sounds, soft, nontender, no hepatosplenomegaly Results & Data Vital Signs (Past 12 Hours) Vital Signs Temp Pulse Resp BP BP Pulse Ox O2 Del Method 12/11/22 03:09 98.2 F 94 H 18 115/72 98 Room Air 12/10/22 23:17 98.8 F 91 H 18 124/73 96 Room Air 12/10/22 20:56 97.9 F 95 H 18 125/79
[2022-12-11] MEDS: PRENATAL VITAMIN 1 TAB PO SCH (07:46)
[2022-12-11] MEDS: IBUPROFEN 600 MG TAB PO PRN (07:46)
[2022-12-11] MEDS: DOCUSATE SODIUM 100 MG CAP PO SCH (07:46)
[2022-12-11] MEDS ORDERED: bisacodyL 5 MG TABEC PO SCH (20:00)
== END 2022-12-11 12:55 | disposition home or self-care (01) | DRG 807 ==
LOC: OPB 01:42 → 4S1 01:44 → 4E2 12:06